=== PATIENT | male | born 1995 | race Caucasian/White ===

== ENCOUNTER 2017-10-12 12:47 | Emergency (ER) | payer MEDICAID ==
[2017-10-12 12:47] VITALS: BMI 38.7
[2017-10-12 13:29] VITALS: RESP 18; TEMP 99.5; O2SAT 99
--- NOTE | 2017-10-12 14:23 | ED PDOC ---
Arrival/HPI - General Chief Complaint: Flu-like Symptoms Time Seen by Provider: 10/12/17 14:23 Historian: Patient - History of Present Illness Narrative History of Present Illness (Text): 10/12/17 14:23 This 21 yo male who denies pmh, presents to this ED c/o fever, myalgias x 1 day. Patient stated he has a mild cough. Patient noted her mother had similar symptoms x 4 days ago, but she is better now. Patient denies other complains. Patient tolerates PO fluids, and food. Denies sob, cp, abdominal pain, urinary symptoms, dizziness, recent travel, skin rash or abnormal gait. Time/Duration: Other (see hpi) Context: Home Past Medical History - Provider Review Nursing Documentation Reviewed: Yes - Past History Past History: No Previous - Infectious Disease Hx of Infectious Diseases: None - Tetanus Immunization Tetanus Immunization: Unknown - Past Medical History Past Medical History: No Previous - Psychiatric Hx Depression: No Hx Emotional Abuse: No Hx Physical Abuse: No Hx Substance Use: No - Past Surgical History Past Surgical History: No Previous - Surgical History Hx Orthopedic Surgery: Yes (left knee) - Suicidal Assessment Feels Threatened In Home Enviroment: No Family/Social History - Physician Review Nursing Documentation Reviewed: Yes Family/Social History: Other (noncontributory) Smoking Status: Never Smoked Hx Alcohol Use: Yes Frequency of alcohol use: Socially Hx Substance Use: No Hx Substance Use Treatment: No Allergies/Home Meds Allergies/Adverse Reactions: Allergies No Known Allergies Allergy (Verified 06/28/14 15:22) Review of Systems - Review of Systems Constitutional: Fevers. absent: Fatigue, Weight Change, Night Sweats Eyes: Normal. absent: Photophobia ENT: Rhinorrhea. absent: Sore Throat, Epistaxis, Sinus Congestion Respiratory: Cough. absent: SOB, Sputum, Wheezing Cardiovascular: Normal. absent: Chest Pain, Palpitations Gastrointestinal: Normal. absent: Abdominal Pain, Nausea, Vomiting Genitourinary Male: Normal. absent: Dysuria, Frequency, Hematuria Musculoskeletal: Myalgias Skin: Normal. absent: Rash Neurological: Normal. absent: Headache, Dizziness, Focal Weakness, Gait Changes , Speech Changes, Facial Droop, Disequilibrium, Seizure Endocrine: Normal Hemo/Lymphatic: Normal Psychiatric: Normal Physical Exam Vital Signs Temp Pulse Resp BP Pulse Ox 10/12/17 13:20 99.5 F 99 H 18 150/81 99 Temperature: Afebrile Blood Pressure: Normal Pulse: Regular Respiratory Rate: Normal Appearance: Positive for: Well-Appearing, Non-Toxic, Comfortable Pain Distress: None Mental Status: Positive for: Alert and Oriented X 3 - Systems Exam Head: Present: Atraumatic, Normocephalic Pupils: Present: PERRL Extroacular Muscles: Present: EOMI Conjunctiva: Present: Normal Mouth: Present: Moist Mucous Membranes Pharnyx: Present: Normal. No: ERYTHEMA, EXUDATE, TONSILS ENLARGED Nose (External): Present: Atraumatic Nose (Internal): Present: Normal Inspection Neck: Present: Normal Range of Motion, Trachea Midline. No: Meningeal Signs, MIDLINE TENDERNESS, Paraspinal Tenderness, Lymphadenopathy Respiratory/Chest: Present: Clear to Auscultation, Good Air Exchange. No: Respiratory Distress, Accessory Muscle Use Cardiovascular: Present: Regular Rate and Rhythm, Normal S1, S2. No: Murmurs Abdomen: Present: Normal Bowel Sounds. No: Tenderness, Distention, Peritoneal Signs Back: Present: Normal Inspection. No: CVA Tenderness Upper Extremity: Present: Normal Inspection, Normal ROM. No: Cyanosis, Edema Lower Extremity: Present: Normal Inspection, Normal ROM. No: Edema Neurological: Present: GCS=15, CN II-XII Intact, Speech Normal, Motor Func Grossly Intact, Normal Sensory Function, Normal Cerebellar Funct, Gait Normal Skin: Present: Warm, Dry, Normal Color. No: Rashes Psychiatric: Present: Alert, Oriented x 3, Normal Insight, Normal Concentration Medical Decision Making ED Course and Treatment: 10/12/17 15:03 Re-evaluation. Patient feels better. Discussed results and plan with patient who expresses understanding. All questions answered and there is agreement with the plan to discharge home with instructions. Patient stable for discharge. Return if symptoms persist or worsen. Patient was recommended to see his PMD or clinic doctor for revaluation, and not to go to school till his doctor tells him is safe to go back to school. Patient was encourage fluid intake, rest, and to control fever. Return to emergency if symptoms worsen. Lungs CTA b/l, no wheezing or rales. Re-evaluation Time: 15:03 Reassessment Condition: Re-examined, Improved - Lab Interpretations Lab Results: Lab Results 10/12/17 13:34: Influenza Typ A,B (EIA) Pos for influenza a H I have reviewed the lab results: Yes ((+) influenza) - Medication Orders Current Medication Orders: Discontinued Medications Azithromycin (Zithromax) 500 mg PO STAT STA PRN Reason: Protocol Stop: 10/12/17 15:04 Last Admin: 10/12/17 15:25 Dose: 500 mg Oseltamivir Phosphate (Tamiflu Cap) 75 mg PO STAT STA PRN Reason: Protocol Stop: 10/12/17 15:04 Last Admin: 10/12/17 15:25 Dose: 75 mg Disposition/Present on Arrival - Present on Arrival Any Indicators Present on Arrival: No History of DVT/PE: No History of Uncontrolled Diabetes: No Urinary Catheter: No History of Decub. Ulcer: No History Surgical Site Infection Following: None - Disposition Have Diagnosis and Disposition been Completed?: Yes Diagnosis: Influenza A Disposition: HOME/ ROUTINE Disposition Time: 15:04 Patient Plan: Discharge Patient Problems: Current Active Problems Problem Status Onset Influenza A Acute Condition: GOOD Discharge Instructions (ExitCare): Influenza (ED) Additional Instructions: Call private doctor for follow up visit in 1-2 days. No school till your doctor tell you when to go back. Drink enough fluids, rest, and control fever return to emergency if symptoms worsen. Prescriptions: Azithromycin [Zithromax] 250 mg PO DAILY #4 tab Ibuprofen [Motrin] 600 mg PO Q6H PRN #20 tab PRN Reason: Fever >100.4 F Oseltamivir [Tamiflu] 75 mg PO BID #9 cap Promethazine [Phenergan Syrup] 6.25 mg PO Q4H PRN #120 ml PRN Reason: Cough And Congestion Referrals: [facility] [Outside] - Follow up with primary [facility] [Outside] - Follow up with primary Forms: [employer] (Green[place]ic), SCHOOL NOTE
[2017-10-12 15:31] VITALS: BP 140/70; PULSE 94
== END 2017-10-12 15:31 | disposition home or self-care (01) ==
LOC: ED 12:47
DX: J09.X2 Influenza due to identified novel influenza A virus with other respiratory manifestations (principal)